=== PATIENT | female | born 1955 | race Caucasian/White ===

== ENCOUNTER 2018-09-21 21:00 | Outpatient (REF) | payer MEDICARE, BC, SELFPAY ==
--- NOTE | 2018-09-21 08:40 | PAPFT_PTH ---
PATIENT: Surekha Britton LOC: [facility] U#:[id number] AGE/SX: 63/F ROOM: RE09/21/[address]: Jose Armando March : 1955 BED: DIS: 09/21/2018 SPEC #: [id number] RECD: 09/22/18 18:12 STATUS: SCOOBY RELonny #: [id number] SEB: 09/21/18 08:[address]: Jose Armando March DEPT: [facility] Cytology RECD BY: Marleny Mcnulty Tissues: 1 - CX/ENDOCX FOR PAP SMEARS Procedures: PAP THIN PREP/[facility] Screening HPV DNA PROBE Comments: [id number]
== END 2018-09-21 21:20 ==
LOC: NCHCN 21:00
PROVIDERS: PCP Family Medicine; Visit Provider Family Medicine
DX: Z12.4 Encounter for screening for malignant neoplasm of cervix (principal); Z11.51 Encounter for screening for human papillomavirus (HPV)
CPT/HCPCS: 88142; 87624

== ENCOUNTER 2018-12-21 17:04 | Outpatient (REF) | payer MEDICARE, BC, SELFPAY ==
[2018-12-21 22:35] LABS: Anion Gap 10.8 mmol/L (3-11); BUN 15 mg/dL (7-18); CO2 25.2 mmol/L (21.0-32.0); CREATININE 0.95 mg/dL (0.55-1.02); Calcium 9.6 mg/dL (8.5-10.1); Chloride 104 mmol/L (98-107); Estimated GFR 59.22 (mL/min/1.73m2); Glucose 117 mg/dL (70-100); Potassium 4.2 mmol/L (3.5-5.1); Sodium 140 mmol/L (136-145)
== END 2018-12-21 17:24 ==
LOC: NCHCN 17:04
PROVIDERS: PCP Family Medicine; Visit Provider Family Medicine
DX: R73.09 Other abnormal glucose (principal); I10 Essential (primary) hypertension
CPT/HCPCS: 80048; 83036

== ENCOUNTER 2019-03-08 18:34 | Outpatient (REF) | payer MEDICARE, BC, SELFPAY ==
[2019-03-08 21:33] LABS: Abs Immature Grans 0.02 k/cumm (0.0-0.09); Absolute Basophil Count 0.02 k/cumm (0.0-0.2); Absolute Lymphocyte Count 1.85 k/cumm (1.2-3.4); Absolute Monocyte Count 0.45 k/cumm (0.11-0.7); Absolute Neutrophil Count 5.32 k/cumm (1.2-6.7); Basophils % 0.3; Eosinophils % 1.3; HCT 38.1 % (36.0-46.0); HGB 12.5 g/dL (12.0-15.5); Immature Grans % 0.3; Lymphocytes % 23.8; Mean Corp. HGB Concentration 32.8 g/dL (32.0-36.0); Mean Corpuscular Hemoglobin 27.5 pg (27.0-33.0); Mean Corpuscular Volume 83.9 fL (80-95); Mean Platelet Volume 12.2 fL (8.0-11.0); Monocytes % 5.8; Neutrophils % 68.5; Platelet Count 229 x1000/uL (130-400); RBC 4.54 m/cumm (4.00-5.20); RBC Distribution Width 16.1 % (11.7-14.6); White Blood Cell Count 7.76 k/cumm (4.4-10.8)
[2019-03-08 22:00] LABS: ALT 26 U/L (14-59); AST 20 U/L (15-37); Alkaline Phosphatase 101 U/L (46-116); Anion Gap 11.3 mmol/L (3-11); BUN 17 mg/dL (7-18); Bilirubin, Total 0.6 mg/dL (0.2-1.0); C-Reactive Protein 0.72 mg/dL (0.0-0.3); CO2 24.7 mmol/L (21.0-32.0); CREATININE 0.71 mg/dL (0.55-1.02); Calcium 9.3 mg/dL (8.5-10.1); Chloride 106 mmol/L (98-107); Glucose 92 mg/dL (70-100); Lipase 38 U/L (73-393); Potassium 3.8 mmol/L (3.5-5.1); Sodium 142 mmol/L (136-145); TSH (W/Ref FT4) 0.39 uIU/mL (0.36-3.74); Total Protein 7.8 g/dL (6.4-8.2)
[2019-03-08 22:35] LABS: ESR 32 mm/hr (0-30)
[2019-03-10 10:36] LABS: CEA 0.9 ng/ml
== END 2019-03-08 18:54 ==
LOC: NCHCN 18:34
PROVIDERS: PCP Family Medicine; Visit Provider Family Medicine
DX: N39.41 Urge incontinence (principal); R11.0 Nausea; R10.9 Unspecified abdominal pain; R63.4 Abnormal weight loss; R42 Dizziness and giddiness; Z85.048 Personal history of other malignant neoplasm of rectum, rectosigmoid junction, and anus
CPT/HCPCS: 80053; 83690; 85652; 82378; 84443; 85025; 86140; 87086

== ENCOUNTER 2019-04-20 13:28 | Outpatient (REF) | payer MEDICARE, BC, SELFPAY ==
[2019-04-20 21:19] LABS: Abs Immature Grans 0.02 k/cumm (0.0-0.09); Absolute Basophil Count 0.02 k/cumm (0.0-0.2); Absolute Eosinophil Count 0.32 k/cumm (0.0-0.7); Absolute Monocyte Count 0.42 k/cumm (0.11-0.7); Absolute Neutrophil Count 5.49 k/cumm (1.2-6.7); Basophils % 0.3; Eosinophils % 4.1; HCT 37.9 % (36.0-46.0); HGB 12.3 g/dL (12.0-15.5); Immature Grans % 0.3; Lymphocytes % 20.3; Mean Corp. HGB Concentration 32.5 g/dL (32.0-36.0); Mean Corpuscular Volume 86.1 fL (80-95); Mean Platelet Volume 11.8 fL (8.0-11.0); Monocytes % 5.3; Neutrophils % 69.7; Platelet Count 233 x1000/uL (130-400); RBC Distribution Width 16.5 % (11.7-14.6); White Blood Cell Count 7.87 k/cumm (4.4-10.8)
== END 2019-04-20 13:48 ==
LOC: NCHCN 13:28
PROVIDERS: PCP Family Medicine; Visit Provider Family Medicine
DX: K06.8 Other specified disorders of gingiva and edentulous alveolar ridge (principal)
CPT/HCPCS: 85025

== ENCOUNTER 2020-01-31 17:26 | Outpatient (REF) | payer MEDICARE, BC, SELFPAY ==
[2020-01-31 20:11] LABS: Abs Immature Grans 0.02 10^3/uL (0.0-0.06); Absolute Basophil Count 0.02 10^3/uL (0.0-0.2); Absolute Eosinophil Count 0.16 10^3/uL (0.0-0.7); Absolute Monocyte Count 0.46 10^3/uL (0.1-0.8); Absolute Neutrophil Count 5.51 10^3/uL (1.2-6.7); Basophils % 0.3; Eosinophils % 2.1; HCT 37.7 % (36.0-46.0); HGB 12.1 g/dL (11.2-15.7); Immature Grans % 0.3; Lymphocytes % 17.4; MCH 26.6 pg (27.0-33.0); MCHC 32.1 % (32.0-36.0); MCV 82.9 fL (80-95); MPV 12.2 fL (8.0-11.0); Monocytes % 6.2; Neutrophils % 73.7; Nucleated RBC 0 %; Platelet Count 275 10^3/uL (130-400); RBC 4.55 10^6/uL (3.93-5.22); RDW 14.4 % (11.7-14.6); WBC 7.47 10^3/uL (4.4-10.8)
[2020-01-31 20:15] LABS: ALT 20 U/L (14-59); AST 19 U/L (15-37); Albumin 3.9 g/dL (3.4-5.0); Alkaline Phosphatase 114 U/L (46-116); BUN 15 mg/dL (7-18); Bilirubin, Total 0.5 mg/dL (0.2-1.0); CREATININE 0.89 mg/dL (0.55-1.02); Calcium 9.4 mg/dL (8.5-10.1); Chloride 102 mmol/L (98-107); Glucose 96 mg/dL (74-106); Potassium 3.5 mmol/L (3.5-5.1); Sodium 139 mmol/L (136-145); Total Protein 7.7 g/dL (6.4-8.2)
== END 2020-01-31 17:46 ==
LOC: NCHCN 17:26
PROVIDERS: PCP Family Medicine; Visit Provider Nurse Practitioner Family
DX: R19.7 Diarrhea, unspecified (principal)
CPT/HCPCS: 80053; 85025

== ENCOUNTER 2020-11-21 11:37 | Outpatient (REF) | payer MEDICARE, BC, SELFPAY ==
[2020-11-21 13:33] LABS: Anion Gap 6.8 mmol/L (3-11); BUN 23 mg/dL (7-18); CO2 31.2 mmol/L (21.0-32.0); CREATININE 0.8 mg/dL (0.55-1.02); Calcium 9.4 mg/dL (8.5-10.1); Chloride 103 mmol/L (98-107); Glucose 93 mg/dL (74-106); NT-proBNP 1101 pg/mL (<300); Potassium 4.2 mmol/L (3.5-5.1); Sodium 141 mmol/L (136-145)
== END 2020-11-21 11:38 | disposition home or self-care (01) ==
LOC: NCHCN 11:37
PROVIDERS: PCP Family Medicine; Visit Provider Family Medicine
DX: I10 Essential (primary) hypertension (principal); I50.9 Heart failure, unspecified
CPT/HCPCS: 80048; 83880

== ENCOUNTER 2021-02-13 18:05 | Outpatient (REF) | payer MEDICARE, BC, SELFPAY ==
[2021-02-13 20:40] LABS: Hemoglobin A1C 6.1 % (<5.7)
[2021-02-13 20:41] LABS: ALT 26 U/L (14-59); AST 22 U/L (15-37); Albumin 3.9 g/dL (3.4-5.0); Alkaline Phosphatase 96 U/L (46-116); Anion Gap 10.6 mmol/L (3-11); BUN 18 mg/dL (7-18); Bilirubin, Total 0.5 mg/dL (0.2-1.0); CO2 30.4 mmol/L (21.0-32.0); Calcium 9.4 mg/dL (8.5-10.1); Calculated LDL 79 mg/dL (<100); Chloride 100 mmol/L (98-107); Cholesterol 187 mg/dL (<200); Estimated GFR 55.47 (mL/min/1.73m2); Glucose 87 mg/dL (74-106); HDL Cholesterol 64 mg/dL (40-60); Potassium 3.8 mmol/L (3.5-5.1); Sodium 141 mmol/L (136-145); Total Protein 7.5 g/dL (6.4-8.2); Triglyceride 222 mg/dL (<150)
== END 2021-02-13 18:06 | disposition home or self-care (01) ==
LOC: NCHCN 18:05
PROVIDERS: PCP Family Medicine; Visit Provider Family Medicine
DX: I10 Essential (primary) hypertension (principal); R73.09 Other abnormal glucose
CPT/HCPCS: 80053; 80061; 83036

== ENCOUNTER 2021-12-19 16:43 | Outpatient (REF) | payer MEDICARE, BC, SELFPAY ==
[2021-12-19 21:07] LABS: Iron 184 ug/dL (50-170); Total Iron Binding Capacity 360 ug/dL (250-450); Transferrin Sat 51 % (15-50)
[2021-12-19 21:14] LABS: HCT 35.1 % (36.0-46.0); HGB 11.1 g/dL (11.2-15.7); MCHC 31.6 % (32.0-36.0); MCV 85 fL (80-95); MPV 11.9 fL (8.0-11.0); Platelet Count 281 10^3/uL (130-400); RBC 4.11 10^6/uL (3.93-5.22); RDW 15.9 % (11.7-14.6); WBC 10.26 10^3/uL (4.4-10.8)
[2021-12-19 21:25] LABS: Anion Gap 9.3 mmol/L (3-11); BUN 27 mg/dL (7-18); CO2 33.7 mmol/L (21.0-32.0); CREATININE 1.2 mg/dL (0.55-1.02); Calcium 9.2 mg/dL (8.5-10.1); Chloride 94 mmol/L (98-107); Estimated GFR 44.81 (mL/min/1.73m2); Ferritin 44 ng/mL (8-252); Glucose 116 mg/dL (74-106); Potassium 3.5 mmol/L (3.5-5.1); Sodium 137 mmol/L (136-145)
[2021-12-22 07:10] LABS: Vitamin D 25 Total 24.9 ng/mL (30-100)
== END 2021-12-19 16:44 | disposition home or self-care (01) ==
LOC: NCHCN 16:43
PROVIDERS: PCP Family Medicine; Visit Provider Family Medicine
DX: E55.9 Vitamin D deficiency, unspecified (principal); I10 Essential (primary) hypertension; K92.2 Gastrointestinal hemorrhage, unspecified
CPT/HCPCS: 80048; 82306; 85027; 82728; 83540; 83550; 83735

== ENCOUNTER 2022-01-01 18:44 | Outpatient (REF) | payer MEDICARE, BC, SELFPAY ==
[2022-01-01 14:26] LABS: Anion Gap 7.7 mmol/L (3-11); BUN 23 mg/dL (7-18); CO2 33.3 mmol/L (21.0-32.0); CREATININE 1.2 mg/dL (0.55-1.02); Calcium 9.8 mg/dL (8.5-10.1); Chloride 94 mmol/L (98-107); Estimated GFR 44.81 (mL/min/1.73m2); Glucose 127 mg/dL (74-106); Potassium 3.4 mmol/L (3.5-5.1); Sodium 135 mmol/L (136-145)
== END 2022-01-01 18:45 | disposition home or self-care (01) ==
LOC: NCHCN 18:44
PROVIDERS: PCP Family Medicine; Visit Provider Nurse Practitioner Family
DX: R94.4 Abnormal results of kidney function studies (principal)
CPT/HCPCS: 80048

== ENCOUNTER 2022-01-23 20:44 | Outpatient (REF) | payer MEDICARE, BC, SELFPAY ==
[2022-01-23 21:35] LABS: Anion Gap 11.1 mmol/L (3-11); BUN 27 mg/dL (7-18); CO2 32.9 mmol/L (21.0-32.0); CREATININE 1.4 mg/dL (0.55-1.02); Calcium 9.3 mg/dL (8.5-10.1); Chloride 94 mmol/L (98-107); Estimated GFR 37.51 (mL/min/1.73m2); Glucose 98 mg/dL (74-106); Sodium 138 mmol/L (136-145)
[2022-01-23 21:38] LABS: Iron 49 ug/dL (50-170); Total Iron Binding Capacity 373 ug/dL (250-450); Transferrin Sat 13 % (15-50)
[2022-01-23 21:42] LABS: Potassium 2.8 mmol/L (3.5-5.1)
[2022-01-23 22:02] LABS: Vitamin D 25 Total 23.5 ng/mL (30-100)
== END 2022-01-23 20:45 | disposition home or self-care (01) ==
LOC: NCHCN 20:44
PROVIDERS: PCP Family Medicine; Visit Provider Family Medicine
DX: D64.9 Anemia, unspecified (principal); R94.4 Abnormal results of kidney function studies; E55.9 Vitamin D deficiency, unspecified
CPT/HCPCS: 80048; 82306; 83540; 83550

== ENCOUNTER 2022-01-27 17:06 | Outpatient (REF) | payer MEDICARE, BC, SELFPAY ==
[2022-01-27 20:55] LABS: Anion Gap 6.7 mmol/L (3-11); BUN 19 mg/dL (7-18); CO2 28.3 mmol/L (21.0-32.0); CREATININE 1.2 mg/dL (0.55-1.02); Calcium 9.3 mg/dL (8.5-10.1); Chloride 101 mmol/L (98-107); Estimated GFR 44.81 (mL/min/1.73m2); Glucose 99 mg/dL (74-106); Magnesium 1.9 mg/dL (1.8-2.4); Potassium 5.3 mmol/L (3.5-5.1); Sodium 136 mmol/L (136-145)
== END 2022-01-27 17:07 | disposition home or self-care (01) ==
LOC: NCHCN 17:06
PROVIDERS: PCP Family Medicine; Visit Provider Family Medicine
DX: E87.6 Hypokalemia (principal)
CPT/HCPCS: 80048; 83735

== ENCOUNTER 2022-02-02 17:45 | Outpatient (REF) | payer MEDICARE, BC, SELFPAY ==
[2022-02-02 14:58] LABS: Anion Gap 8.2 mmol/L (3-11); BUN 20 mg/dL (7-18); CO2 29.8 mmol/L (21.0-32.0); CREATININE 1.3 mg/dL (0.55-1.02); Calcium 9.3 mg/dL (8.5-10.1); Chloride 99 mmol/L (98-107); Estimated GFR 40.86 (mL/min/1.73m2); Glucose 124 mg/dL (74-106); Potassium 3.7 mmol/L (3.5-5.1); Sodium 137 mmol/L (136-145)
== END 2022-02-02 17:46 | disposition home or self-care (01) ==
LOC: NCHCN 17:45
PROVIDERS: PCP Family Medicine; Visit Provider Family Medicine
DX: E87.6 Hypokalemia (principal)
CPT/HCPCS: 80048

== ENCOUNTER 2022-02-07 15:56 | Outpatient (REF) | payer MEDICARE, BC, SELFPAY ==
[2022-02-06 22:04] LABS: Anion Gap 8.8 mmol/L (3-11); BUN 22 mg/dL (7-18); CO2 34.2 mmol/L (21.0-32.0); CREATININE 1.2 mg/dL (0.55-1.02); Calcium 9.4 mg/dL (8.5-10.1); Chloride 99 mmol/L (98-107); Estimated GFR 44.81 (mL/min/1.73m2); Glucose 106 mg/dL (74-106); Potassium 3.8 mmol/L (3.5-5.1); Sodium 142 mmol/L (136-145)
== END 2022-02-07 15:57 | disposition home or self-care (01) ==
LOC: NCHCN 15:56
PROVIDERS: PCP Family Medicine; Visit Provider Family Medicine
DX: E87.6 Hypokalemia (principal)
CPT/HCPCS: 80048

== ENCOUNTER 2022-03-26 19:39 | Outpatient (REF) | payer MEDICARE, BC, SELFPAY ==
[2022-03-26 15:17] LABS: Anion Gap 6.7 mmol/L (3-11); BUN 25 mg/dL (7-18); CO2 33.3 mmol/L (21.0-32.0); CREATININE 1.3 mg/dL (0.55-1.02); Calcium 9.9 mg/dL (8.5-10.1); Chloride 98 mmol/L (98-107); Estimated GFR 45.07 (mL/min/1.73m2); Glucose 105 mg/dL (74-106); Potassium 3.6 mmol/L (3.5-5.1); Sodium 138 mmol/L (136-145); TSH (W/Ref FT4) 1.74 uIU/mL (0.36-3.74)
[2022-03-26 15:36] LABS: Vitamin D 25 Total 25.3 ng/mL (30-100)
== END 2022-03-26 19:40 | disposition home or self-care (01) ==
LOC: NCHCN 19:39
PROVIDERS: PCP Family Medicine; Visit Provider Family Medicine
DX: I10 Essential (primary) hypertension (principal); E55.9 Vitamin D deficiency, unspecified; Z13.29 Encounter for screening for other suspected endocrine disorder
CPT/HCPCS: 80048; 82306; 84443

== ENCOUNTER 2022-05-05 16:19 | Outpatient (REF) | payer MEDICARE, BC, SELFPAY | END 2022-05-05 16:20 | disposition home or self-care (01) | LOC: NCHCN 16:19 | PROVIDERS: PCP Family Medicine; Visit Provider Family Medicine | DX: R30.0 Dysuria (principal) | CPT/HCPCS: 87086 ==

== ENCOUNTER 2022-12-08 15:07 | Outpatient (REF) | payer MEDICARE, BC, SELFPAY ==
[2022-12-08 14:58] LABS: HCT 33.4 % (36.0-46.0); HGB 10.3 g/dL (11.2-15.7); MCH 24.9 pg (27.0-33.0); MCHC 30.8 % (32.0-36.0); MCV 81 fL (80-95); MPV 11.3 fL (8.0-11.0); Platelet Count 317 10^3/uL (130-400); RBC 4.14 10^6/uL (3.93-5.22); RDW 16.6 % (11.7-14.6); RDW-SD 48.6 fL; WBC 9.95 10^3/uL (4.4-10.8)
[2022-12-08 15:27] LABS: Anion Gap 7.2 mmol/L (3-11); BUN 15 mg/dL (7-18); CO2 34.8 mmol/L (21.0-32.0); Calcium 9.5 mg/dL (8.5-10.1); Chloride 97 mmol/L (98-107); Estimated GFR 61.36 (mL/min/1.73m2); Ferritin 23 ng/mL (8-252); Glucose 107 mg/dL (74-106); Potassium 3.4 mmol/L (3.5-5.1); Sodium 139 mmol/L (136-145)
== END 2022-12-08 15:08 | disposition home or self-care (01) ==
LOC: NCHCN 15:07
PROVIDERS: PCP Family Medicine; Visit Provider Family Medicine
DX: D64.9 Anemia, unspecified (principal); R53.83 Other fatigue; I50.9 Heart failure, unspecified; G25.81 Restless legs syndrome
CPT/HCPCS: 80048; 85027; 82728

== ENCOUNTER 2022-12-17 13:30 | Outpatient (REF) | payer MEDICARE, BC, SELFPAY ==
[2022-12-17 14:39] LABS: Hemoglobin A1C 5.8 % (<5.7)
[2022-12-17 14:43] LABS: Anion Gap 9.1 mmol/L (3-11); BUN 25 mg/dL (7-18); CO2 30.9 mmol/L (21.0-32.0); CREATININE 1.3 mg/dL (0.55-1.02); Chloride 97 mmol/L (98-107); Estimated GFR 44.79 (mL/min/1.73m2); Glucose 138 mg/dL (74-106); Sodium 137 mmol/L (136-145)
== END 2022-12-17 13:31 | disposition home or self-care (01) ==
LOC: NCHCN 13:30
PROVIDERS: PCP Family Medicine; Visit Provider Family Medicine
DX: R73.03 Prediabetes (principal); I10 Essential (primary) hypertension; I50.40 Unspecified combined systolic (congestive) and diastolic (congestive) heart failure
CPT/HCPCS: 80048; 83036

== ENCOUNTER 2023-01-18 16:01 | Outpatient (REF) | payer MEDICARE, BC, SELFPAY ==
[2023-01-18 16:02] LABS: Anion Gap 9.7 mmol/L (3-11); BUN 19 mg/dL (7-18); CO2 31.3 mmol/L (21.0-32.0); CREATININE 1.4 mg/dL (0.55-1.02); Calcium 9.7 mg/dL (8.5-10.1); Chloride 97 mmol/L (98-107); Estimated GFR 40.98 (mL/min/1.73m2); Glucose 113 mg/dL (74-106); Potassium 3.2 mmol/L (3.5-5.1); Sodium 138 mmol/L (136-145)
== END 2023-01-18 16:02 | disposition home or self-care (01) ==
LOC: NCHCN 16:01
PROVIDERS: PCP Family Medicine; Visit Provider Family Medicine
DX: I11.0 Hypertensive heart disease with heart failure (principal); I50.40 Unspecified combined systolic (congestive) and diastolic (congestive) heart failure; R73.03 Prediabetes
CPT/HCPCS: 80048

== ENCOUNTER 2023-02-19 12:46 | Outpatient (REF) | payer MEDICARE, BC, SELFPAY ==
[2023-02-19 21:08] LABS: HCT 36.5 % (36.0-46.0); HGB 11.3 g/dL (11.2-15.7); MCH 25.1 pg (27.0-33.0); MCV 81 fL (80-95); MPV 10.7 fL (8.0-11.0); Platelet Count 349 10^3/uL (130-400); RDW 16.7 % (11.7-14.6); RDW-SD 49.3 fL; WBC 9.71 10^3/uL (4.4-10.8)
[2023-02-19 21:26] LABS: Anion Gap 9.4 mmol/L (3-11); BUN 23 mg/dL (7-18); CO2 30.6 mmol/L (21.0-32.0); CREATININE 1.2 mg/dL (0.55-1.02); Calcium 9.6 mg/dL (8.5-10.1); Chloride 99 mmol/L (98-107); Estimated GFR 49.31 (mL/min/1.73m2); Glucose 101 mg/dL (74-106); Potassium 3.9 mmol/L (3.5-5.1); Sodium 139 mmol/L (136-145)
[2023-02-19 21:29] LABS: Iron 27 ug/dL (50-170)
== END 2023-02-19 12:47 | disposition home or self-care (01) ==
LOC: NCHCN 12:46
PROVIDERS: PCP Family Medicine; Visit Provider Family Medicine
DX: D64.9 Anemia, unspecified (principal)
CPT/HCPCS: 80048; 85027; 83540

== ENCOUNTER 2023-03-25 16:35 | Outpatient (REF) | payer MEDICARE, BC, SELFPAY ==
[2023-03-25 21:16] LABS: Anion Gap 7.9 mmol/L (3-11); BUN 25 mg/dL (7-18); CO2 31.1 mmol/L (21.0-32.0); CREATININE 1.5 mg/dL (0.55-1.02); Chloride 91 mmol/L (98-107); Estimated GFR 37.72 (mL/min/1.73m2); Glucose 121 mg/dL (74-106); Sodium 130 mmol/L (136-145)
== END 2023-03-25 16:36 | disposition home or self-care (01) ==
LOC: NCHCN 16:35
PROVIDERS: PCP Family Medicine; Visit Provider Family Medicine
DX: I10 Essential (primary) hypertension (principal); R73.03 Prediabetes; I50.40 Unspecified combined systolic (congestive) and diastolic (congestive) heart failure; I48.0 Paroxysmal atrial fibrillation
CPT/HCPCS: 80048; 83735

== ENCOUNTER 2023-03-31 12:30 | Outpatient (REF) | payer MEDICARE, BC, SELFPAY ==
[2023-03-31 22:28] LABS: Anion Gap 10.8 mmol/L (3-11); BUN 22 mg/dL (7-18); CO2 27.2 mmol/L (21.0-32.0); CREATININE 1.4 mg/dL (0.55-1.02); Calcium 10.1 mg/dL (8.5-10.1); Chloride 94 mmol/L (98-107); Estimated GFR 40.98 (mL/min/1.73m2); Glucose 140 mg/dL (74-106); Potassium 4.4 mmol/L (3.5-5.1); Sodium 132 mmol/L (136-145)
== END 2023-03-31 12:31 | disposition home or self-care (01) ==
LOC: NCHCN 12:30
PROVIDERS: PCP Family Medicine; Visit Provider Family Medicine
DX: I50.40 Unspecified combined systolic (congestive) and diastolic (congestive) heart failure (principal); M25.571 Pain in right ankle and joints of right foot
CPT/HCPCS: 80048

== ENCOUNTER 2023-09-09 18:03 | Outpatient (REF) | payer MEDICARE, BC, SELFPAY ==
[2023-09-09 15:19] LABS: HGB 11.9 g/dL (11.2-15.7); MCH 24.4 pg (27.0-33.0); MCHC 31.3 % (32.0-36.0); MCV 78 fL (80-95); MPV 11.9 fL (8.0-11.0); Platelet Count 318 10^3/uL (130-400); RBC 4.88 10^6/uL (3.93-5.22); RDW 17.1 % (11.7-14.6); RDW-SD 47.9 fL; WBC 12.48 10^3/uL (4.4-10.8)
[2023-09-09 15:39] LABS: ALT 20 U/L (14-59); AST 28 U/L (15-37); Albumin 3.6 g/dL (3.4-5.0); Alkaline Phosphatase 149 U/L (46-116); Anion Gap 12.5 mmol/L (3-11); BUN 23 mg/dL (7-18); Bilirubin, Total 0.4 mg/dL (0.2-1.0); CO2 26.5 mmol/L (21.0-32.0); CREATININE 1.3 mg/dL (0.55-1.02); Calcium 9.7 mg/dL (8.5-10.1); Chloride 100 mmol/L (98-107); Estimated GFR 44.51 (mL/min/1.73m2); Glucose 109 mg/dL (74-106); Potassium 4.5 mmol/L (3.5-5.1); Sodium 139 mmol/L (136-145); TSH 1.11 uIU/Ml (0.36-3.74); Total Protein 8.3 g/dL (6.4-8.2)
== END 2023-09-09 18:04 | disposition home or self-care (01) ==
LOC: NCHCN 18:03
PROVIDERS: PCP Family Medicine; Visit Provider Family Medicine
DX: R19.7 Diarrhea, unspecified (principal); D64.9 Anemia, unspecified; Z13.29 Encounter for screening for other suspected endocrine disorder
CPT/HCPCS: 80053; 85027; 84443

== ENCOUNTER 2024-02-25 15:15 | Outpatient (REF) | payer MEDICARE, BC, SELFPAY ==
[2024-02-25 17:15] LABS: HCT 36.4 % (36.0-46.0); HGB 11.3 g/dL (11.2-15.7); MCH 23.7 pg (27.0-33.0); MCV 76 fL (80-95); MPV 12.1 fL (8.0-11.0); Platelet Count 309 10^3/uL (130-400); RBC 4.77 10^6/uL (3.93-5.22); RDW 17.4 % (11.7-14.6); RDW-SD 47.9 fL; WBC 10.02 10^3/uL (4.4-10.8)
[2024-02-25 18:00] LABS: Hemoglobin A1C 5.9 % (<5.7)
[2024-02-25 18:13] LABS: ALT 25 U/L (14-59); AST 23 U/L (15-37); Albumin 3.7 g/dL (3.4-5.0); Alkaline Phosphatase 134 U/L (46-116); Anion Gap 10.2 mmol/L (3-11); BUN 23 mg/dL (7-18); Bilirubin, Total 0.49 mg/dL (0.2-1.0); CO2 30.8 mmol/L (21.0-32.0); CREATININE 1.3 mg/dL (0.55-1.02); Calcium 9.4 mg/dL (8.5-10.1); Chloride 98 mmol/L (98-107); Estimated GFR 44.51 (mL/min/1.73m2); Ferritin 41 ng/mL (8-252); Glucose 92 mg/dL (74-106); Potassium 3.2 mmol/L (3.5-5.1); Sodium 139 mmol/L (136-145); Total Protein 8.1 g/dL (6.4-8.2); Vitamin D 25 Total 25.9 ng/mL (30-100)
[2024-02-25 18:48] LABS: Iron 20 ug/dL (50-170); Total Iron Binding Capacity 357 ug/dL (250-450); Transferrin Sat 6 % (15-50)
== END 2024-02-25 15:16 | disposition home or self-care (01) ==
LOC: NCHCN 15:15
PROVIDERS: PCP Family Medicine; Visit Provider Family Medicine
DX: D64.9 Anemia, unspecified (principal); E55.9 Vitamin D deficiency, unspecified
CPT/HCPCS: 80053; 82306; 85027; 82728; 83036; 83540; 83550

== ENCOUNTER 2024-03-17 15:17 | Outpatient (REF) | payer MEDICARE, BC, SELFPAY ==
[2024-03-17 21:35] LABS: Anion Gap 10.7 mmol/L (3-11); BUN 27 mg/dL (7-18); CO2 29.3 mmol/L (21.0-32.0); CREATININE 1.3 mg/dL (0.55-1.02); Calcium 10.3 mg/dL (8.5-10.1); Chloride 99 mmol/L (98-107); Estimated GFR 44.51 (mL/min/1.73m2); Glucose 92 mg/dL (74-106); Sodium 139 mmol/L (136-145)
== END 2024-03-17 15:18 | disposition home or self-care (01) ==
LOC: NCHCN 15:17
PROVIDERS: PCP Family Medicine; Visit Provider Family Medicine
DX: E87.6 Hypokalemia (principal)
CPT/HCPCS: 80048

== ENCOUNTER 2024-11-02 10:31 | Outpatient (REF) | payer MEDICARE, BC, SELFPAY ==
[2024-11-02 15:13] LABS: HCT 35.8 % (36.0-46.0); HGB 10.7 g/dL (11.2-15.7); MCH 23.8 pg (27.0-33.0); MCHC 29.9 % (32.0-36.0); MCV 80 fL (80-95); RDW-SD 67.9 fL; WBC 8.77 10^3/uL (4.4-10.8)
[2024-11-02 15:32] LABS: RDW 24.1 % (11.7-14.6)
[2024-11-02 15:34] LABS: Anion Gap 8.3 mmol/L (3-11); BUN 21 mg/dL (7-18); CO2 29.7 mmol/L (21.0-32.0); CREATININE 1.3 mg/dL (0.55-1.02); Calcium 9.5 mg/dL (8.5-10.1); Chloride 102 mmol/L (98-107); Estimated GFR 44.24 (mL/min/1.73m2); Glucose 106 mg/dL (74-106); Potassium 4.5 mmol/L (3.5-5.1); Sodium 140 mmol/L (136-145)
== END 2024-11-02 10:32 | disposition home or self-care (01) ==
LOC: NCHCN 10:31
PROVIDERS: PCP Family Medicine; Visit Provider Family Medicine
DX: E87.6 Hypokalemia (principal); D64.9 Anemia, unspecified
CPT/HCPCS: 80048; 85027

== ENCOUNTER 2024-12-12 13:35 | Outpatient (REF) | payer MEDICARE, BC, SELFPAY ==
[2024-12-12 18:24] LABS: HCT 38.5 % (36.0-46.0); HGB 11.7 g/dL (11.2-15.7); MCH 24.6 pg (27.0-33.0); MCHC 30.4 % (32.0-36.0); MCV 81 fL (80-95); Platelet Count 277 10^3/uL (130-400); RBC 4.76 10^6/uL (3.93-5.22); RDW-SD 60.2 fL
[2024-12-12 18:53] LABS: ALT 21 U/L (14-59); AST 25 U/L (15-37); Albumin 3.4 g/dL (3.4-5.0); Alkaline Phosphatase 133 U/L (46-116); Anion Gap 8.1 mmol/L (3-11); BUN 19 mg/dL (7-18); Bilirubin, Total 0.4 mg/dL (0.2-1.0); CO2 29.9 mmol/L (21.0-32.0); CREATININE 1.2 mg/dL (0.55-1.02); Calcium 9.4 mg/dL (8.5-10.1); Calculated LDL 61 mg/dL (<100); Chloride 99 mmol/L (98-107); Cholesterol 139 mg/dL (<200); Glucose 91 mg/dL (74-106); HDL Cholesterol 53 mg/dL (>or=50); Potassium 4.2 mmol/L (3.5-5.1); Sodium 137 mmol/L (136-145); Total Protein 7.7 g/dL (6.4-8.2); Triglyceride 127 mg/dL (<150)
[2024-12-12 19:12] LABS: RDW 20.5 % (11.7-14.6)
[2024-12-12 19:30] LABS: NT-proBNP 1498 pg/mL (<300)
== END 2024-12-12 13:36 | disposition home or self-care (01) ==
LOC: NCHCN 13:35
PROVIDERS: PCP Family Medicine; Visit Provider Family Medicine
DX: I50.9 Heart failure, unspecified (principal)
CPT/HCPCS: 80053; 80061; 85027; 83880